=== PATIENT | male | born 1965 ===

== ENCOUNTER 2018-06-26 20:29 | Observation (INO) | payer BC, MEDICARE ==
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
[2018-06-26] MEDS ORDERED: NS 0.9% 1000 ML** 2,000 ML IV ONE (21:03)
[2018-06-26 21:38] LABS: ABS Basophils 0.1 10^3/ul (0-0.2); ABS Eosinophils 0.2 10^3/ul (0-0.6); ABS Lymphocytes 2.6 10^3/ul (1.0-4.8); ABS Neutrophils 4.9 10^3/ul (1.5-7.7); Eosinophil % 2.5 %; Hematocrit 43 % (42-52); Hemoglobin 14.1 g/dL (14.0-18.0); Lymphocyte % 29.6 %; Mean Corpuscular HGB Conc 33 g/dL (31-36); Mean Corpuscular Hemoglobin 29 pg (27-31); Mean Corpuscular Volume 88 fL (80-94); Mean Platelet Volume 7.9 fL (7.4-10.4); Platelet Count 290 10^3/uL (150-450); Red Blood Count 4.86 10^6 /uL (4.18-5.48); Red Cell Distribution Width 14 % (10.5-15); White Blood Count 8.8 10^3/uL (3.5-10.8)
[2018-06-26 21:50] LABS: Albumin 4.6 g/dL (3.2-5.2); Albumin/Globulin Ratio 1.9 (1-3); BUN/Creatinine Ratio 17.1 (8-20); Calcium 9.7 mg/dL (8.6-10.3); EGFR African American 78.6 (>60); Globulin 2.4 g/dL (2-4); Magnesium 2.3 mg/dL (1.9-2.7); Potassium 3.6 mmol/L (3.5-5.0); Total Bilirubin 0.7 mg/dL (0.2-1.0)
[2018-06-26] MEDS ORDERED: Albuterol HFA INHALER* 8 gm MDI INH PRN (22:27)
[2018-06-26 22:38] LABS: TSH (Thyroid Stimulating Horm) 3.13 mcIU/mL (0.34-5.60)
[2018-06-26] MEDS ORDERED: Atorvastatin* 40 MG TAB PO SCH (23:00)
[2018-06-26] MEDS ORDERED: FLUoxetine CAP* 20 MG PO SCH (23:00)
[2018-06-26] MEDS ORDERED: Acetaminophen TAB* 325 MG PO PRN (23:04)
[2018-06-26] MEDS ORDERED: NS 0.9% 1000 ML** 1,000 ML IV SCH (23:15)
[2018-06-26] MEDS ORDERED: Gabapentin CAP(*) 300 MG PO SCH (23:45)
[2018-06-27] MEDS ORDERED: Iodixanol* (CONTRAST) 320 MG/ML 100 ML SDV IV ONE (00:49)
--- NOTE | 2018-06-27 02:21 | HP ---
HISTORY AND PHYSICAL: DATE OF ADMISSION: 06/26/18 PROVIDER: Ricardo Aguiar NP. PRIMARY CARE PROVIDERS: Dr. Vera and Dr. Mckeon. ATTENDING PHYSICIAN WHILE IN THE HOSPITAL: Dr. Ricky Vieira * (dictated by Ricardo Aguiar NP). CHIEF COMPLAINT: Low blood sugar, low blood pressure. HISTORY OF PRESENT ILLNESS: Mr. Diaz is a 53-year-old male with a past medical history significant for hypertension, type 2 diabetes, hyperlipidemia, and GERD who presented to the emergency room with complaints of low blood sugar and hypotension. The patient reports that he was in his normal state of health today, feeling fine. He reports that this afternoon he had 4 to 5 beers. This evening he was feeling weak and started seeing black dots. He reports that he took his blood pressure; it was 57/40 at home and when he checked his blood sugar, it was 65 after he had eaten a large salad and had beer to drink. The patient reports that he rechecked his blood sugar and it remained at 65. He reports that he was feeling weak and shaky, so he presented to the emergency room for further evaluation. The patient reports that when he got out of the car to come into the emergency room, he felt weak with standing and a palpation sensation in his neck and upper chest that resolved approximately after 30 minutes with rest. He denies any fever, chills, or unintended weight loss. He denies any edema, cough, hemoptysis, or shortness of breath. No nausea, vomiting, diarrhea, or abdominal pain, hematuria, or dysuria. Denies any focal weakness. He did report seeing black dots. Denies any dysphagia, arthralgias, myalgias, rashes, lesions, or open sores. Denies any psychosis or anxiety. The patient also reports that he has had a 74-pound weight loss that has been intentional. The patient has been trying to lose weight. His typical daily diet consists of 2 protein shakes and a large salad in the evening with a source of meat protein. The patient reports that he is supposed to follow with his primary care doctor next week to see if he would need medication adjustments for his diabetes and hypertension. Due to his hypoglycemia and hypotension, we were asked to see and evaluate him for admission. PAST MEDICAL HISTORY: 1. Hypertension. 2. Type 2 diabetes. 3. Hyperlipidemia. 4. Acid reflux. 5. Chronic pain. 6. Depression. 7. Ascending aortic aneurysm. PAST SURGICAL HISTORY: 1. History of spinal surgery x5. 2. Hernia repair in 2013. 3. Tonsillectomy. 4. Hemangioma removed from his head. MEDICATIONS: Home medications include: 1. Aspirin 81 mg p.o. daily. 2. ReQuip 8 mg p.o. at bedtime. 3. Metformin 1000 mg p.o. b.i.d. 4. Ranitidine 150 mg p.o. b.i.d. 5. ProAir HFA 1 puff b.i.d. p.r.n. 6. Actos 30 mg p.o. daily. 7. Pantoprazole 40 mg p.o. daily. 8. Pamelor 50 mg at bedtime. 9. Metoprolol 100 mg b.i.d. 10. Xyzal 10 mg p.o. daily p.r.n. 11. Irbesartan/hydrochlorothiazide 150/12.5 one tablet p.o. daily. 12. Gabapentin 900 mg p.o. b.i.d. 13. Breo Ellipta 1 inhale daily. 14. Fluoxetine 80 mg at bedtime. 15. Trulicity 1.5 mg subcu weekly. 16. Colace 100 mg p.o. b.i.d. 17. Flexeril 10 mg p.o. t.i.d. p.r.n. He has not taken this medication in a long time. 18. Atorvastatin 40 mg at bedtime. 19. Alprazolam 0.5 mg p.o. at bedtime. ALLERGIES: He has an allergy to CARBIDOPA/LEVODOPA, PSEUDOEPHEDRINE, rice, and ACTIFED. FAMILY HISTORY: The patient was adopted, unknown. Biological mother at the age of 82. He does report his biological brother had prostate cancer and biological sister with breast cancer. SOCIAL HISTORY: The patient reports that he quit smoking approximately 10 years ago. Prior to that, he smoked 1-1/2 packs a day for 30 years. Does report occasional alcohol use. Denies any illicit drug use. He is disabled. He is . Surrogate decision maker in the event he is unable to make his own decision is his . He is a full code. REVIEW OF SYSTEMS: An 11-point review of systems was completed and all pertinent positives were mentioned in the HPI. PHYSICAL EXAMINATION GENERAL: At this time, Mr. Diaz is a 53-year-old male. He is resting comfortably on the stretcher in the emergency room. He is alert and oriented. He does not appear to be in any acute distress. VITAL SIGNS: Blood pressure 102/62, heart rate 82, respirations are 10, O2 saturation is 94% on room air, temperature was 97.8. HEENT: Head is atraumatic, normocephalic. Eyes: EOMs are intact. Sclerae anicteric and not pale. Oral mucosa appears to be moist. NECK: Supple. LUNGS: Clear to auscultation bilaterally. No wheezes, rales, or rhonchi. CARDIAC: S1, S2. Regular rate and rhythm. No murmurs, rubs, or gallops. ABDOMEN: Soft and nontender. Bowel sounds are present x4. EXTREMITIES: He is able to move all 4 extremities with 5/5 strength. Pedal pulses are +2 bilaterally. There is no clubbing or cyanosis. NEUROLOGIC: He is awake, alert, and oriented x3. Speech is clear. Thought process is intact. There are no gross focal deficits. SKIN: Intact. DIAGNOSTIC STUDIES/LAB DATA: WBCs are 8.8, RBCs 4.86, hemoglobin 14.1, hematocrit 43, platelet count was 290. D-dimer is less than 200. Sodium 134, potassium 3.6, chloride 101, carbon dioxide is 22, anion gap 11, BUN 20, creatinine 1.17, glucose 58; repeat Accu-Chek was 87. Lactic acid initially was 2.5; repeat is pending at 1:30. Calcium 9.7. ASTs were 17, ALTs were 20. Troponin was 0.00. TSH was 3.13. Alcohol level was 18. Urine is currently pending. EKG showed sinus rhythm at a rate of 87. No ST elevations. ASSESSMENT AND PLAN: Mr. Diaz is a 53-year-old male with past medical history significant for hypertension, type 2 diabetes, hyperlipidemia, gastroesophageal reflux disease, ascending aortic aneurysm who presented to the emergency room with complaints of hypotension and hypoglycemia. Due to these findings, we were asked to see and evaluate him for admission. He will be admitted under observation for: 1. Hypoglycemia. I will get fingersticks q.2 hours x4 and then q.4 hours. I will hold his Actos, metformin, and Trulicity. The patient reports that he has had a 75- pound weight loss and has not had any of his medications adjusted. I suspect that his hypoglycemia could be related to no adjustments of his medications after weight loss. We will monitor the patient overnight and make medication adjustments in the a.m. A hemoglobin A1c is currently pending. 2. Hypotension. Again, the patient has had a 70-pound weight loss with no medication adjustments. I will hold his blood pressure medications this evening and resume them when blood pressure is stable. I will give him one more liter of normal saline in the emergency room. He will likely need his medications adjusted. Again, the patient has a 75-pound weight loss with no medication adjustments. 3. Hyperlipidemia. Can continue on atorvastatin as previously prescribed. 4. Gastroesophageal reflux disease. He can continue on pantoprazole 40 mg p.o. daily. 5. Chronic pain. We will continue his gabapentin 900 mg p.o. b.i.d. 6. History of ascending aortic aneurysm. This has been monitored by PCP as an outpatient. The patient has no chest pain or symptomatology of dissection. If the patient does develop chest pain or symptomatology of dissection, we will get a CTA of his chest. 7. DVT prophylaxis. I will place him on SCDs. 8. Code status. He is a full code. 9. Diet. He can have consistent carb diet. TIME SPENT: Time spent on this admission was 60 minutes. Greater than half that time was spent at the bedside reviewing events leading thus far to this hospitalization, performing my physical exam, and reviewing my plan of care. I have discussed this with my attending, Dr. Ricky Vieira; he is in agreement with my plan. RICARDO AGUIAR, ECOMMERCE MANAGER [id number]/[facility] #: [id number] AWA
--- NOTE | 2018-06-27 08:32 | PN ---
Subjective Date of Service: 06/27/18 Interval History: A1c 5.3%. BPs at goal off meds. Pt feels well. Describes significant dietary and other lifestyle changes since attending [facility] (as prerequirement for possible bariatric surgery) that resulted in significant weight loss. Likely this is what brought his glucose and pressures down. Objective Active Medications: Acetaminophen (Tylenol Tab*) 650 mg PO Q4H PRN PRN Reason: FEVER/PAIN Albuterol (Ventolin Hfa Inhaler*) 1 puff INH BID PRN PRN Reason: SOB/WHEEZING Alprazolam (Xanax Tab*) 0.5 mg PO BEDTIME BRITTANEY Aspirin (Aspirin Ec Tab*) 81 mg PO DAILY BRITTANEY Atorvastatin Calcium (Lipitor*) 40 mg PO BEDTIME BRITTANEY Last Admin: 06/27/18 00:27 Dose: 40 mg Fluoxetine HCl (Prozac Cap*) 80 mg PO BEDTIME BRITTANEY Last Admin: 06/27/18 00:27 Dose: 80 mg Fluticasone/Vilanterol (Breo Ellipta Mdi 200/25(Nf)) 1 puff INH DAILY [facility] Last Admin: 06/27/18 07:48 Dose: Not Given Nortriptyline HCl (Pamelor Cap*) 50 mg PO BEDTIME BRITTANEY Pantoprazole Sodium (Protonix Tab*) 40 mg PO DAILY BRITTANEY Ropinirole HCl (Requip*) 8 mg PO BEDTIME [facility] Vital Signs - 8 hr 06/27/18 06/27/18 06/27/18 00:27 03:27 04:05 Temperature 97.1 F Pulse Rate 75 Respiratory 18 16 20 Rate Blood Pressure 128/68 (mmHg) Oxygen Devices in Use Now: None Appearance: well appearing, alert, interactive Ears/Nose/Mouth/Throat: Clear Oropharnyx, Mucous Membranes Moist Neck: NL Appearance and Movements; NL JVP Respiratory: Symmetrical Chest Expansion and Respiratory Effort, Clear to Auscultation Cardiovascular: RRR Abdominal: NL Sounds; No Tenderness; No Distention, No Hepatosplenomegaly Extremities: No Edema, No Clubbing, Cyanosis Skin: No Rash or Ulcers Neurological: Alert and Oriented x 3, NL Gait, NL Muscle Strength and Tone Result Diagrams: 06/26/18 21:25 06/26/18 21:25 Assess/Plan/Problems-Billing Assessment: 53M with DM2, HTN, obesity s/p significant weight loss, presenting with hypotension and hypoglycemia. - Patient Problems (1) Diabetes mellitus type 2 in obese Status: Chronic Priority: Medium Code(s): E11.9 - TYPE 2 DIABETES MELLITUS WITHOUT COMPLICATIONS; E66.9 - OBESITY, UNSPECIFIED SNOMED Code(s): 29511498 Comment: Will stop all DM2 agents. Repeat A1c in 3 months. Pt reports that he monitors fasting blood glucose at home. (2) Hypotension Status: Acute Comment: Iactrogenic. Will stop amlodipine and HCTZ. Continue ARB at low dose and metoprolol given h/o tachycardia.
[2018-06-27] MEDS ORDERED: Aspirin EC TAB* 81 MG TAB.EC PO SCH (09:00)
[2018-06-27] MEDS ORDERED: Pantoprazole TAB * 40 MG TAB PO SCH (09:00)
[2018-06-27] MEDS ORDERED: Fluticasone/Vilanterol MDI(NF) 200/25 MDI INH SCH (09:00)
[2018-06-27 12:45] VITALS: BP 144/82
[2018-06-27] MEDS ORDERED: ALPRAZolam TAB* 0.5 MG PO SCH (21:00)
[2018-06-27] MEDS ORDERED: Nortriptyline CAP* 25 MG PO SCH (21:00)
[2018-06-27] MEDS ORDERED: rOPINIRole TAB* 4 MG PO SCH (21:00)
--- NOTE | 2018-06-28 00:17 | DS ---
CC: Dr. Emir Vera * DISCHARGE SUMMARY: DATE OF ADMISSION: 06/26/18 DATE OF DISCHARGE: 06/27/18 PRIMARY CARE PHYSICIAN: Dr. Emir Vera. PRIMARY DIAGNOSIS: Iatrogenic hypoglycemia and hypotension. SECONDARY DIAGNOSES: 1. Diabetes type 2. 2. Hypertension. 3. Gastroesophageal reflux disease. 4. Chronic pain. 5. Ascending aortic aneurysm. 6. Depression. 7. Restless legs syndrome. DISCHARGE MEDICATIONS: 1. Irbesartan 150 mg nightly. 2. Metoprolol succinate 100 mg nightly. 3. Alprazolam 0.5 mg at bedtime. 4. Aspirin 81 mg daily. 5. Atorvastatin 40 mg at bedtime. 6. Cyclobenzaprine 10 mg 3 times a day as needed for muscle spasm. 7. Fluoxetine 80 mg at bedtime. 8. Gabapentin 900 mg twice a day. 9. Levocetirizine 10 mg daily. 10. Nortriptyline 50 mg at bedtime. 11. Pantoprazole 40 mg daily. 12. Breo Ellipta 1 inhalation daily. 13. Albuterol 2 puffs 3 to 4 hours as needed for shortness of breath. 14. Ranitidine 150 mg twice a day as needed for reflux. 15. Ropinirole 8 mg at bedtime. HISTORY OF PRESENT ILLNESS: A 53-year-old male with a history of diabetes, hypertension, GERD, obesity, who presented to the emergency room with complaints of low blood sugar and hypotension. The patient states that he was in his normal state of health today, which is generally good health. This afternoon of his presentation, he had 4 to 5 beers. Afterwards, he was feeling weak and started seeing black dots. He reports that when he checked his blood pressure at home, it was 67/40 and his blood sugar was in the 60s even after eating a large salad with multiple beers. He reports that he rechecked his sugar again. It was still in the 60s. Because he was feeling weak and shaky, he presented to the emergency room. He felt weak on standing with a palpitation sensation in his neck and upper chest that resolved after rest. He has had no fever or chills or unintended weight loss, but he has lost approximately 74 pounds in the last several months due to significant lifestyle changes. He has had no cough, hemoptysis, shortness of breath, nausea, vomiting, diarrhea, no weakness. He generally has 2 protein shakes a day with a large salad in the evening with meat for protein. He is supposed to follow up with his primary care next week to see if he needed medication adjustment for his diabetes and hypertension. However, given his presenting symptoms, he came to the emergency room. HOSPITAL COURSE: The patient was admitted to the medical floor and his metformin, Trulicity and Actos were held. All of his blood pressure medications were held as well. An A1c resulted 5.3%. He received 3 L of normal saline with complete resolution of his symptoms. By next morning, the patient reports he was feeling great and back to his baseline with stable blood sugar and normal blood pressures. He had extensive discussion with this senior grant writer regarding blood pressure and blood glucose management. He preferred to stop all blood glucose medication as he follows his blood glucose very closely at home and it was recommended that he repeat his A1c in 3 months after discontinuing medications in the hospital. If he has an A1c above 7% at that time, it was recommended that he go back on metformin. He also had extensive discussion about blood pressure management and the patient checks his blood pressure at home frequently and states that he is able to keep a log and see primary care immediately if he notices his blood pressures are too low or above his goal of less than 130/80. PERTINENT STUDIES AND LABS: Hemoglobin A1c 5.3%. Chest/thorax CTA without aortic dissection, aneurysm, or rupture. Moderate emphysema. DISCHARGE PLAN: The patient is to follow up closely with his primary care physician for further optimization of his blood pressure and blood glucose regimen. He will be due for a repeat of his hemoglobin A1c in 3 months, which is mid September. If his blood sugar is above goal, notably an A1c of 7% or above, he should be restarted on metformin given significant health benefits of this medication and also the patient preferring some tolerability. For his blood pressure, we will stop amlodipine and hydrochlorothiazide. He can be continued on metoprolol. However, instead of metoprolol tartrate twice a day, we will decrease to metoprolol succinate 100 once a day given history of tachycardia requiring beta-blockade. He will also be continued on low dose of irbesartan given cardiomyoprotection in the setting of history of diabetes and hypertension. The patient is to continue monitoring his blood glucose at home, fasted in the morning and will bring a log of that in addition to his blood pressures to his primary care physician for review. He is to continue healthy diet with activity as tolerated. DISPOSITION: To home. CONDITION: Good. TIME SPENT: Approximately 60 minutes spent on discharge of this patient, more than half of which was spent with care coordination at bedside for interview and exam. [id number]/[facility] #: [id number] MTDD
== END 2018-06-27 13:15 | disposition home or self-care (01) ==
LOC: ED 20:29 → MED 23:04
PROVIDERS: ADMIT Nurse Practitioner; ATTEND Internal Medicine
DX: E11.649 Type 2 diabetes mellitus with hypoglycemia without coma (principal); I95.9 Hypotension, unspecified; I10 Essential (primary) hypertension; K21.9 Gastro-esophageal reflux disease without esophagitis; G89.29 Other chronic pain; I71.2 Thoracic aortic aneurysm, without rupture; F32.9 Major depressive disorder, single episode, unspecified; G25.81 Restless legs syndrome; Z79.82 Long term (current) use of aspirin; E66.9 Obesity, unspecified; J43.9 Emphysema, unspecified
CPT/HCPCS: 36415; 71275; 80053; 80320; 83036; 83605; 83735; 84443; 84484; 85025; 85379; 93005; 94660; 96360; 99284; A9270-GY; G0378; G0480; Q9967

== ENCOUNTER 2018-10-14 17:55 | Inpatient (IN) | payer BC, MEDICARE ==
--- NOTE | 2018-10-14 18:03 | ED ---
Substance Abuse/Use - HPI Summary HPI Summary: This pt is a 53 y/o male presenting to [facility] via EMS for intentional overdose last night. reports that at about 2130 yesterday 10/13/18 pt ingested at least two different medications. states they were at a camp last night where the pt was drinking alcohol. Per the pt left the camp site to drive home and 's son told her he saw pt's truck at their home at around 2215. Pt took a max of 45 pills of Trazadone 50 mg and a max of 35 pills of Xanax 0.5 mg. At around 1200 today went to check on the pt and pt was still sleeping and was still "drunk" from last night. At around 1400 - 1500 noticed pt had slurred speech and couldn't push himself up anymore while in the bathroom. also found a "goodbye email" the patient had written to her that was concerning for suicide and this is when she called 911. Pt also cut his right wrist. Per EMS pt admitted he ingested the medications and cut his wrist in an attempt to harm himself. Pt denies any pain. He denies vomiting. EMS states pt has long standing history of mental health. Pt also has bottles of Flexeril, Lexapro, and metoprolol. Per , Lexapro has been discontinued. PMHx: HTN. - History Of Current Complaint Stated Complaint: OVERDOSE PER EMS Time Seen by Provider: 10/14/18 17:56 Hx Obtained From: Patient, Family/Brake Rider - Onset/Duration of Drug/ETOH Abuse: Hours Ingestion History: Type/Name Of Drug - Trazadone 50 mg, Xanax 0.5 mg, Amount Ingested - max of 45 pills of Trazadone and max 35 pills of Xanax, Approximate Time Of Ingestion - approx 21:30 on 10/13/18. Overdose Characteristics: Oral Timing Of Abuse: Binge Use Severity Currently: Moderate Character: Depressed, Lethargic Aggravating Factor(s): Nothing Alleviating Factor(s): Nothing Associated Signs And Symptoms: Altered Mental Status, Intentional Ingestion Related Hx: Suicidal, Possible Multi Drug Ingestion, Suicidal: Thoughts, Suicidal: Plan - Allergies/Home Medications Allergies/Adverse Reactions: Allergies Allergy/AdvReac Type Severity Reaction Status Date / Time carbidopa [From Sinemet] Allergy Hives Verified 10/14/18 18:15 levodopa [From Sinemet] Allergy Hives Verified 10/14/18 18:15 pseudoephedrine Allergy Rash Verified 10/14/18 18:15 [From Actifed] rice Allergy See Comment Verified 10/14/18 18:15 triprolidine [From Actifed] Allergy Rash Verified 10/14/18 18:15 Home Medications: Home Medications Escitalopram * [Lexapro *] 20 mg PO DAILY 10/14/18 [History Confirmed 10/14/18] Irbesartan 300 mg PO BEDTIME 10/14/18 [History Confirmed 10/14/18] Spironolactone TAB* [Aldactone TAB*] 25 mg PO DAILY 10/14/18 [History Confirmed 10/14/18] traZODone TAB* [Desyrel TAB*] 150 mg PO BEDTIME 10/14/18 [History Confirmed 04/02] PMH/Surg Hx/FS Hx/Imm Hx Endocrine/Hematology History: Reports: Hx Diabetes - TYPE 2 Denies: Hx Sickle Cell Disease, Hx Thyroid Disease Cardiovascular History: Reports: Hx Angina - PALPITATIONS, TACHYCARDIA, Hx Hypercholesterolemia, Hx Hypertension Denies: Hx Congestive Heart Failure, Hx Pacemaker/ICD, Other Cardiovascular Problems/Disorders Respiratory History: Reports: Hx Chronic Obstructive Pulmonary Disease (COPD) - emphysema, Hx Sleep Apnea, Other Respiratory Problems/Disorders - CPAP at home; does not use Denies: Hx Asthma GI History: Reports: Hx Gastroesophageal Reflux Disease Denies: Hx Ulcer History: Denies: Hx Renal Disease Musculoskeletal History: Reports: Hx Arthritis - HANDS AND MOST JOINTS, Hx Back Problems, Other Musculoskeletal History - DEGEN DISC; Neck Pain Denies: Hx Gout, Hx Scoliosis Sensory History: Reports: Hx Contacts or Glasses Denies: Hx Hearing Aid, Hx Hearing Problem Opthamlomology History: Reports: Hx Contacts or Glasses Neurological History: Reports: Hx Headaches, Hx Migraine, Other Neuro Impairments/Disorders - degen. disc disease Psychiatric History: Reports: Hx Anxiety, Hx Depression, Hx Panic Disorder Comment Only: Other Psychiatric Issues/Disorders - claustofobic - Surgical History Surgical History: Yes Surgery Procedure, Year, and Place: TONSILS 1970, [facility]. 1972, HEMANGIOMA FROM SIDE OF HEAD, [facility] [place]. hernia operation in apr 2012. cardiac cath - 11/2013 stress test. neck and lumbar fusions Hx Anesthesia Reactions: No Infectious Disease History: Denies: Hx Clostridium Difficile, Hx Hepatitis, Hx Human Immunodeficiency Virus (HIV), Hx of Known/Suspected MRSA, Hx Shingles, Hx Tuberculosis, Hx Known/ Suspected VRE - Family History Known Family History: Negative: Blood Disorder - Social History Alcohol Use: Weekly Alcohol Amount: 2 drinks per week Substance Use Type: Reports: None Hx Tobacco Use: Yes - 30 YEARS Smoking Status (MU): Former Smoker Type: Cigarettes Amount Used/How Often: 1ppd Have You Smoked in the Last Year: No Review of Systems Negative: Fever, Chills Negative: Abdominal Pain, Vomiting, Nausea Skin: Other - POSITIVE: laceration on right wrist Psychological: Other - POSITIVE: SI attempt Positive: Depressed All Other Systems Reviewed And Are Negative: Yes Physical Exam - Summary Physical Exam Summary: Constitutional: NAD, somnolent Skin: Warm, Dry. 5 cm superficial laceration to the right wrist. HENT: Normocephalic; Atraumatic. Dry mucous membranes. Eyes: Conjunctiva normal Neck: Musculoskeletal ROM normal neck. (-) JVD, (-) Stridor Cardio: Rhythm regular, tachycardic, Heart sounds normal; Intact distal pulses; Radial pulses are 2+ and symmetric. (-) Murmur Pulmonary/Chest wall: Effort normal. (-) Respiratory distress, (-) Wheezes, (-) Rales Abd: Soft, (-) tenderness, (-) Distension, (-) Guarding, (-) Rebound Musculoskeletal: (-) Edema Lymph: (-) Cervical adenopathy Neuro: Somnolent but arousable with verbal stimuli. Oriented x3. No clonus. Psych: +SI Triage Information Reviewed: Yes Vital Signs Reviewed: Yes - [place] Coma Scale Best Eye Response: 3 - To Speech Best Motor Response: 6 - Obeys Commands Best Verbal Response: 5 - Oriented Coma Scale Total: 14 Diagnostics - Laboratory Result Diagrams: 10/14/18 18:16 10/14/18 18:16 Lab Statement: Any lab studies that have been ordered have been reviewed, and results considered in the medical decision making process. - CT Brain CT CT Interpretation Completed By: Radiologist Summary of CT Findings: IMPRESSION: No acute intracranial abnormality. Dr. Chopra has reviewed this report. - EKG 18:55 Cardiac Rate: Tachycardia - at 99 bpm EKG Rhythm: Sinus Tachycardia Summary of EKG Findings: QTc is 468. Re-Evaluation - Re-Evaluation First Eval Comment: Patient still somnolent, will admit to medicine for sobriety and then pysch evaluation Course/Dx - Course Course Of Treatment: 53-year-old male with history of depression presents with suicidal attempt with ingestion. Physical exam a somnolent male, protecting airway. Possible ingestion of up to 50 0.5 mg lorazepam tablets as well as 35 trazodone tablets. Given patient's continued somnolence, we'll check labs, head CT, EKG. Discussed with poison control. Likely to be admitted to hospitalist service pending sobriety for reevaluation of suicidal ideation - Diagnoses Provider Diagnoses: Altered mental status, Overdose - Physician Notifications Discussed Care Of Patient With: Dr. Moran - hospitalist Time Discussed With Above Provider: 19:54 Instructed by Provider To: Admit As Inpatient Discharge ED - Sign-Out/Discharge Documenting (check all that apply): Patient Departure - Admit to [facility] Patient Received Moderate/Deep Sedation with Procedure: No - Discharge Plan Condition: Stable Disposition: ADMITTED TO [facility] - Billing Disposition and Condition Condition: STABLE Disposition: Admitted to [facility] - Attestation Statements Document Initiated by Torin: Yes Documenting Scribe: Irina Young Provider For Whom Torin is Documenting (Include Credential): Adelaida Chopra MD Scribe Attestation: Irina Ramirez, scribed for Adelaida Chopra MD on 10/14/18 at 2323. Scribe Documentation Reviewed: Yes Provider Attestation: The documentation as recorded by the Irina osman accurately reflects the service I personally performed and the decisions made by me, Adelaida Chopra MD Status of Scribe Document: Viewed
--- OUTSIDE RECORDS SUMMARY | 2018-10-14 18:07 | XMS REPORT | Summary of Care ---
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 Last A1C was 6.0 on 09/27/2018. Encounter Details Date Type Department Care Team Description 10/01/2018 Office Visit [place] Emir Mckay BMI 32.0-32.9, adult (Primary Dx); Zev Lua MD Routine general medical examination at a health care facility; [address] [facility] Essential hypertension, benign; [place] [address] [place] [address] ASHD (arteriosclerotic heart disease); [phone] Gastroesophageal reflux disease without esophagitis; [phone] Chronic bilateral low back pain with sciatica, sciatica laterality unspecified (Fax) Allergies Active Allergy Reactions Severity Noted Date Comments Carbidopa W/Levodopa Rash 10/18/2012 Rice GI Reaction 10/29/2012 Sudafed Cold-Cough Dermatologic Reaction 10/18/2012 Zinc Other 08/23/2017 States his ribs itch on the inside documented as of this encounter (statuses as of 10/01/2018) Medications Medication Sig Dispensed Refills Start Date End Date Status Blood Glucose Brand: InvestGlass IQ 100 Strip 5 12/26/2012 Active Monitoring Suppl (BLOOD Dx: 250.00 GLUCOSE TEST STRIPS NON-INSULIN STRP) DEPENDENT Test Blood Glucose 1 time(s) A DAY docusate sodium Take 1 Cap by 60 Cap 0 01/29/2015 Active (COLACE) 100 MG Oral mouth TWICE Cap DAILY. Levocetirizine Take 5 mg by 0 Active Dihydrochloride 5 MG mouth DAILY Oral Tab NEEDED. Fluticasone Take 1 Puff by 0 Active Furoate-Vilanterol inhalation DAILY. (BREO ELLIPTA) 200-25 MCG/INH Inhalation AEROSOL POWDER, BREATH ACTIVATED Albuterol Sulfate Take 2 Puffs by 0 Active (PROAIR HFA IN) inhalation EVERY FOUR HOURS NEEDED. Irbesartan 300 MG Oral Take 1 Tab by 90 Tab 11 08/30/2017 Active Tab mouth DAILY. Additional information Patient taking differently: 0.5 Tab Oral DAILY, Reported on 07/02/2018 1:56 PM Glucose Blood In Vitro 1 Strip by In 100 Each 5 10/02/2017 Active Strip Vitro route DAILY. E11.9, no insulin Aspirin 81 MG Oral Tab Take by mouth. 0 Active EC atorvastatin (LIPITOR) Take 1 Tab by 90 Tab 3 04/10/2018 Active 80 MG Oral mouth DAILY. TabIndications: Mixed hyperlipidemia ALPRAZolam (XANAX) 0.5 TAKE 1 TAB BY 90 Tab 0 05/06/2018 Active MG Oral MOUTH THREE TabIndications: TIMES DAILY Depression with NEEDED FOR anxiety ANXIETY nortriptyline Take 50 mg by 0 Active (PAMELOR) 50 MG Oral mouth EVERY Cap BEDTIME. spironolactone Take 1 Tab by 30 Tab 5 09/19/2018 Active (ALDACTONE) 25 MG Oral mouth DAILY. TabIndications: Essential hypertension, benign metoprolol succinate Take 1 Tab by 90 Tab 3 09/23/2018 Active (TOPROL XL) 50 MG Oral mouth DAILY. TABLET SR 24 HRIndications: ASHD (arteriosclerotic heart disease) pantoprazole TAKE 1 TABLET 90 Tab 3 09/25/2018 Active (PROTONIX) 40 MG Oral BY MOUTH EVERY Tab EC DAY ROPINIROLE TAKE 2 TABLETS 180 Tab 4 09/25/2018 Active HYDROCHLORIDE 4 MG BY MOUTH AT Oral TabIndications: BEDTIME Restless leg syndrome trazodone (DESYREL) 50 Take 1-3 Tabs 90 Tab 3 10/01/2018 Active MG Oral Tab by mouth EVERY BEDTIME NEEDED (sleep). gabapentin (NEURONTIN) Take 1-2 Caps 540 Cap 3 10/01/2018 Active 300 MG Oral Cap by mouth TWICE DAILY. Glucose Blood In Vitro 1 Each by In 100 Each 5 07/13/2017 Discontinued Strip Vitro route 019 (Duplicate Order) DAILY. Verio IQ, dx 250.00, non insulin gabapentin (NEURONTIN) TAKE 3 CAPS BY 540 Cap 3 09/03/2018 Discontinued (Dose 300 MG Oral Cap MOUTH TWICE 019 Adjustment) DAILY. trazodone (DESYREL) 50 Take 1-3 Tabs 90 Tab 0 09/10/2018 Discontinued MG Oral Tab by mouth EVERY 019 (Reorder) BEDTIME NEEDED (sleep). documented as of this encounter (statuses as of 10/01/2018) Active Problems Problem Noted Date Family history of colon cancer 06/13/2017 Overview: Brother age 60 Tubular adenoma 06/13/2017 Overview: Colonoscopy Dr Shelton 2014 Chronic bilateral low back pain with sciatica 10/19/2016 History of tobacco use 07/27/2016 Overview: Quit 2007 30-40 pack per day years Herniated nucleus pulposus, L4-5 right 01/25/2015 Restless leg syndrome 03/09/2014 Herniated nucleus pulposus, L4-5 left 01/19/2014 White coat hypertension 12/19/2013 Overview: Home blood pressure 130s/80s Non-cardiac chest pain 11/25/2013 Overview: [facility] admission rule out myocardial infarction November [address] Deng negative Non-allergic rhinitis 12/31/2012 Overview: Allergy testing normal Mixed hyperlipidemia 10/18/2012 Cervical spinal stenosis 10/18/2012 Overview: Cervical mri severe C5-6 and C6-7 mri [facility] Oct 2015 Thoracic disc disease 10/18/2012 Overview: Mri thoracic spine [facility] October 2015 Lumbar spinal stenosis 10/18/2012 Overview: Mri 2007 no surgery Essential hypertension, benign 10/18/2012 Pulmonary emphysema 10/18/2012 Overview: 30-40 pack per day years quit 2007 GERD (gastroesophageal reflux disease) 10/18/2012 Obstructive sleep apnea 10/18/2012 documented as of this encounter (statuses as of 10/01/2018) Resolved Problems Problem Noted Date Resolved Date Pre-diabetes 08/29/2018 10/01/2018 Extreme obesity 06/13/2017 08/09/2018 Controlled type 2 diabetes mellitus without complication, 10/19/20162018 without long-term current use of insulin Numbness in feet 04/05/2015 10/01/2018 Back pain, lumbosacral 01/05/2014 10/29/2015 Displacement of lumbar intervertebral disc without 01/05/2014 10/01/2018 myelopathy Sprain of lumbar region 11/22/2012 12/31/2012 BMI 34.0-34.9,adult 10/18/2012 10/01/2018 Overview: BMI 36 10/25 Migraine headache 10/18/2012 10/01/2018 Overview: Neurologist Dr Pace [facility] Type II diabetes mellitus, uncontrolled 10/18/2012 10/19/2016 Overview: Hemoglobin A1C 6.1% spring 2012 Depression with anxiety 10/18/2012 10/01/2018 Overview: In remission fluoxitene since 2010 Chronic rhinitis 10/18/2012 12/31/2012 documented as of this encounter (statuses as of 10/01/2018) Immunizations Name Administration Dates Next Due DTAP Vaccine 11/04/2007 Hepatitis B Vaccine 05/10/2010, 11/24/2009, 10/20/2009 Influenza (IM) Preservative Free 10/25/2016 Influenza (IM) W/Pres 10/29/2015 PNEUMOCOCCAL POLYSACCHARIDE VACCINE 10/29/2015 Pneumococcal Conjugate Vaccine 11/02/2015, 05/10/2010 documented as of this encounter Social History Tobacco Use Types Packs/Day Years Used Date Former Smoker Smokeless Tobacco: Never Used Alcohol Use Drinks/Week oz/Week Comments Yes 1 Standard drinks or equivalent 0.8 OCC Sex Assigned at Date Recorded Not on file Job Start Date Occupation Industry Not on file Not on file Not on file Travel History Travel Start Travel End No recent travel history available. documented as of this encounter Last Filed Vital Signs Vital Sign Reading Time Taken Comments Blood Pressure 128/80 10/01/2018 9:07 AM EDT Pulse 70 10/01/2018 9:07 AM EDT Temperature - - Respiratory Rate - - Oxygen Saturation - - Inhaled Oxygen Concentration - - Weight 98.4 kg (217 lb) 10/01/2018 9:07 AM EDT Height 174 cm (5' 8.5") 10/01/2018 9:07 AM EDT Body Mass Index 32.51 10/01/2018 9:07 AM EDT documented in this encounter Patient Instructions Patient InstructionsEmir Vera MD - 10/01/2018 9:20 AM EDTWean off gabapentin over next month Trial of pantoprazole every other day then stop this nursing home goal weight is <200 pounds Diabetes mellitus is now gone Blood pressure is fine You are doing great Blood work today 9: 30 AM EDT documented in this encounter Progress Notes Emir Vera MD - 10/01/2018 9:20 AM EDT PATIENT: Van Diaz : 1965 DATE OF SERVICE: 10/01/2018 CHIEF COMPLAINT: Chief Complaint Patient presents with Diabetes Follow up. Last A1C was 6.0 on 09/27/2018. Subjective HISTORY OF PRESENT ILLNESS: Van Diaz is a 53-y.o. male. HPI Patient continues to adhere to low calorie and low carbohydrate diet and continue to do self weight at least three times weekly he continues to lose weight Wt Readings from Last 3 Encounters: 10/01/18 217 lb (98.4 kg) 09/19/18 220 lb (99.8 kg) 08/29/18 224 lb (101.6 kg) he began at 296 pounds and so has lost 80-90 lb in the past year He denies diabetes mellitus related symptoms Lab Results Component Value Date GLYCO 6.0 (H) 09/27/2018 he denies gastro-intestinal symptoms now off ranitidine and using only proton pump inhibitor once daily he denies spinal symptoms no radicular symptoms he asks about weaning off gabapentin Patient Active Problem List Diagnosis Mixed hyperlipidemia Cervical spinal stenosis Thoracic disc disease Lumbar spinal stenosis Essential hypertension, benign Pulmonary emphysema (HCC) GERD (gastroesophageal reflux disease) Obstructive sleep apnea Non-allergic rhinitis Non-cardiac chest pain White coat hypertension Herniated nucleus pulposus, L4-5 left Restless leg syndrome Herniated nucleus pulposus, L4-5 right History of tobacco use Chronic bilateral low back pain with sciatica Family history of colon cancer Tubular adenoma Family History Adopted: Yes Problem Relation Age of Onset Cancer Mother Diabetes Mother Obesity Mother Cancer Sister breast Cancer Brother colon ca Cancer Sister breast Cancer Sister breast Alcohol/Drug Brother Depression/Depressed Brother Current Outpatient Medications Medication Sig Albuterol Sulfate (PROAIR HFA IN) Take 2 Puffs by inhalation EVERY FOUR HOURS NEEDED. ALPRAZolam (XANAX) 0.5 MG Oral Tab TAKE 1 TAB BY MOUTH THREE TIMES DAILY NEEDED FOR ANXIETY Aspirin 81 MG Oral Tab EC Take by mouth. atorvastatin (LIPITOR) 80 MG Oral Tab Take 1 Tab by mouth DAILY. Blood Glucose Monitoring Suppl (BLOOD GLUCOSE TEST STRIPS STRP) Brand: Zuki Dx: 250.00 NON-INSULIN DEPENDENT Test Blood Glucose 1 time(s) A DAY docusate sodium (COLACE) 100 MG Oral Cap Take 1 Cap by mouth TWICE DAILY. Fluticasone Furoate-Vilanterol (BREO ELLIPTA) 200-25 MCG/INH Inhalation AEROSOL POWDER, BREATH ACTIVATED Take 1 Puff by inhalation DAILY. gabapentin (NEURONTIN) 300 MG Oral Cap Take 1-2 Caps by mouth TWICE DAILY. Glucose Blood In Vitro Strip 1 Strip by In Vitro route DAILY. E11.9, no insulin Irbesartan 300 MG Oral Tab Take 1 Tab by mouth DAILY. (Patient taking differently: Take 0.5 Tabs by mouth DAILY.) Levocetirizine Dihydrochloride 5 MG Oral Tab Take 5 mg by mouth DAILY NEEDED. metoprolol succinate (TOPROL XL) 50 MG Oral TABLET SR 24 HR Take 1 Tab by mouth DAILY. nortriptyline (PAMELOR) 50 MG Oral Cap Take 50 mg by mouth EVERY BEDTIME. pantoprazole (PROTONIX) 40 MG Oral Tab EC TAKE 1 TABLET BY MOUTH EVERY DAY ROPINIROLE HYDROCHLORIDE 4 MG Oral Tab TAKE 2 TABLETS BY MOUTH AT BEDTIME spironolactone (ALDACTONE) 25 MG Oral Tab Take 1 Tab by mouth DAILY. trazodone (DESYREL) 50 MG Oral Tab Take 1-3 Tabs by mouth EVERY BEDTIME NEEDED (sleep). No current facility-administered medications for this visit. Allergies Allergen Reactions Levodopa W-Carbidopa [Carbidopa W/Levodopa] Rash Rice GI Reaction Sudafed Cold-Cough Dermatologic Reaction Zinc Other States his ribs itch on the inside Social History Socioeconomic History Marital status: Spouse name: Not on file Number of children: Not on file Years of education: Not on file Highest education level: Not on file Occupational History Not on file Social Needs Financial resource strain: Not on file Food insecurity: Worry: Not on file Inability: Not on file Transportation needs: Medical: Not on file Non-medical: Not on file Tobacco Use Smoking status: Former Smoker Smokeless tobacco: Never Used Substance and Sexual Activity Alcohol use: Yes Alcohol/week: 0.8 standard drinks Types: 1 Standard drinks or equivalent per week Comment: OCC Drug use: No Sexual activity: Not on file Lifestyle Physical activity: Days per week: Not on file Minutes per session: Not on file Stress: Not on file Relationships Social connections: Talks on phone: Not on file Gets together: Not on file Attends latter-day service: Not on file Active member of club or organization: Not on file Attends meetings of clubs or organizations: Not on file Relationship status: Not on file Intimate partner violence: Fear of current or ex partner: Not on file Emotionally abused: Not on file Physically abused: Not on file Forced sexual activity: Not on file Other Topics Concern Back Care Not Asked Bike Helmet Not Asked Blood Transfusions Not Asked Caffeine Concern No Exercise No Hobby Hazards Not Asked International Travel Not Asked Service Yes Comment: [facility] Occupational Exposure Not Asked Seat Belt Not Asked Self-Exams Not Asked Sleep Concern Yes Comment: sleep apnea Special Diet Yes Comment: low fat low carbo diet for diabetes Stress Concern Not Asked Weight Concern Yes Comment: had lost wt from 276 lbs to 240 lbs 2011 Social History Narrative Lives in [place] area Step daughter Not currently working Grew up in [place] [facility] ROS continued insomnia and needs trazodone refill denies anxiety or depression and is off selective serotonin receptor inhibitor No cardiovascular symptoms Objective PHYSICAL EXAM: VITALS: BP 128/80 | Pulse 70 | Ht 5' 8.5" (1.74 m) | Wt 217 lb (98.4 kg) | BMI 32.51 kg/m Body mass index is 32.51 kg/m. Physical Exam S1 and S2 normal, no murmurs, clicks, gallops or rubs. Regular rate and rhythm. Chest is clear; nowheezes or rales. No edema or JVD. I spent 25 minutes with the patient, greater than half of this indirect face to face counseling addressing the current condition and the plan of care. ASSESSMENT / IMPRESSION: ICD-9-CM ICD-10-CM 1. BMI 32.0-32.9,adult V85.32 Z68.32 2. Routine general medical examination at a health care facility V70.0 Z00.00 PSA, TOTAL (FOLLOW-UP DIAGNOSTIC) 3. Essential hypertension, benign at goal continue current medications 401.1 I10 BASIC METABOLIC PANEL 4. ASHD (arteriosclerotic heart disease) continue current medications follow up cardiology 414.00 I25.10 LIPID PROFILE 5. Gastroesophageal reflux disease without esophagitis wean off proton pump inhibitor 530.81 K21.9 6. Chronic bilateral low back pain with sciatica, sciatica laterality unspecified wean off gabapentin 724.2 M54.40 724.3 G89.29 338.29 Patient Instructions Wean off gabapentin over next month Trial of pantoprazole every other day then stop this middle or [employer] principal goal weight is <200 pounds Diabetes mellitus is now gone Blood pressure is fine You are doing great Blood work today . Emir Vera MD 10/01/2018 10:07 documented in this encounter Plan of Treatment Date Type Specialty Care Team Description 10/01/2018 Lab Internal Medicine Arrived 03/26/2019 Office Visit Cardiology Carter Ball MD [address] [place] [address] [phone] Name Type Priority Associated Diagnoses Date/Time PSA, TOTAL (FOLLOW-UP Lab Routine Routine general medical 10/01/2018 9:39 AM EDT DIAGNOSTIC) examination at a health care facility BASIC METABOLIC PANEL Lab Routine Essential hypertension, 10/01/2018 9:39 AM EDT benign LIPID PROFILE Lab Routine ASHD (arteriosclerotic 10/01/2018 9:39 AM EDT heart disease) Health Maintenance Due Date Last Done Comments ZOSTER IMMUNIZATION SERIES 2014 (1 of 2) MEDICARE ANNUAL WELLNESS 08/23/2018 08/23/2017 VISIT FOOT EXAM 10/08/2018 10/08/2017, 10/08/2017, 09/25/2016, Additional history exists HEMOGLOBIN A1C 03/30/2019 09/27/2018, 06/26/2018, 02/08/2018, Additional history exists LIPID DISORDER SCREENING 04/10/2019 04/10/2018, 02/08/2018, 01/23/2018, Additional history exists DEPRESSION SCREENING 08/30/2019 08/29/2018, 08/23/2017 Diabetic Eye Exam 09/15/2019 09/14/2017, 05/02/2014 (Previously completed), 08/27/2013 (Previously completed) COLONOSCOPY SCREENING 08/30/2020 08/30/2017, 06/10/2014 PNEUMOCOCCAL 0-64 YRS Completed 11/02/2015, 10/29/2015, 05/10/2010 HPV IMMUNIZATION SERIES Aged Out No longer eligible based on patient's age to complete this topic MENINGOCOCCAL VACCINE IMM Aged Out No longer eligible based on patient's age to complete this topic documented as of this encounter Goals Goal Patient Goal Associated Recent Patient-Stated? Author Type Problems Progress Blood Pressure Blood Pressure 128/80 Miri Vera, < 140/90 (10/01/2018 Emir Lua, 9:07 AM EDT) Note: This is an individualized treatment (blood pressure) goal for Van Diaz: Displayed above (on the left) is your goal for blood pressure control. Your most recent blood pressure is also shown above, on the right. You should try to achieve blood pressures that are lower than your goal listed above (on the left). Depression screen Depression 6 (08/23/2017 10:21 AM No Rosa Burger RN (PHQ-9) total score < 5 EDT) Note: This is an individualized treatment (depression) goal for Van Diaz: Displayed above is your goal for a depression screening (PHQ-9) score that would indicate good control of your depression. Diabetes < 7.0 Diabetes 6.0 (09/27/2018 7:57 AM EDT) Emir Morgan MD Note: Diabetes Care Plan According to current 2014 ADA guidelines the patient A1C goal is less than 7. The patient's last A1C was Lab Results Lab Results Value Date/Time GLYCO 6.6 12/04/2013 0710 GLYCO 6.7 10/21/2012 1014 The patient is:at goal . As your provider, it is important that I advise you regarding: your current medications and help you with any challenges you may face taking your medications as directed (ex. instructions, cost, side effects, and interactions). lifestyle changes:exercise and diet your clinical goals and how you can achieve success:weight reduction, exercise plan and diet management medication management: N/A diet only patient education/self-management tools provided: Yes To successfully manage my Diabetes I will: have lab work every six months if my previous A1c was 7 or less. If my results were greater than 7, I will have lab work every three months. My goal is to control my diabetes by keeping A1c below 7.0 take medications every day as prescribed by my healthcare provider and if unable to take them I will discuss with my provider. exercise/walk 30 minutes 6 day(s) per week. If I experience chest pain, chest tightness, or shortness of breath, I will seek medical attention immediately. check feet daily. If sores or irritation are noticed, will seek medical attention. follow a low carbohydrate and low fat diet. My goal is an LDL (bad cholesterol) number less than 100 when I have my routine lab work. check blood sugar as instructed and will call my healthcare provider if the results are consistently below 70 or above 300. I will monitor for symptoms of low blood sugar (feeling faint, dizzy, lig htheaded, jittery, sweaty, or hungry), if symptoms are noticed, I will eat or drink something (glucose tabs, orange juice, candy) to help raise sugar. record my blood sugar results. [employer] is safe and secure way for you to do this in your medical record online. try to obtain an ideal body weight. My recent weight was Weight: 243 lb 12.8 oz (110.587 kg). My weight loss goal for my next office visit is 220 short term . to prevent kidney problems common to people with diabetes I will complete a yearly Microalbumin to check for protein in urine. I will talk with my healthcare provider about medications to prevent diabetic renal disease. to prevent diabetic retinopathy I will see an eye doctor yearly. A yearly dilated eye exam helps prevent blindness. if currently smoking, will discuss how to quit smoking with my healthcare provider and work towards quitting. Education Resources: [place] Diabetic Association Site http://diabetes.org Academy of Nutrition & Dietetics Site http://eatright.org National Smoking Cessation Site http://smokefree.gov Glycohemoglobin A1c < 7.0 Diabetes 6.0 (09/27/2018 7:57 AM Emir Morgan EDTBasilio RODRIGUEZ Note: This is an individualized treatment (diabetes control, HgbA1C) goal for Van Diaz: Displayed above is your progress towards your HgbA1C goal. Your goal is shown above (on the left); your most recent HgbA1C is shown on the right. Note that lower numbers are better. Weight loss vs. 18 mo Lifestyle 64 (10/01/2018 9:07 AM Emir Morgan MD max (lbs) >= 10 EDT) Note: This is an individualized lifestyle goal for Van Diaz: Your body mass index (BMI) is more than 30. You should lose weight. A reasonable starting goal is to lose 10 pounds. Displayed above is how many pounds you have lost thus far towards your 10 pound weight loss goal. Keep immunizations current Lifestyle Emir Morgan MD Note: This is an individualized lifestyle goal for Van Diaz: Please be sure to keep up-to-date on recommended immunizations. For example, this would include a yearly influenza vaccine. Immunization status can be seen by looking at the Health Maintenance sections of your [facility], Plan of Care, and any After Visit Summaries. Keep a regular sleep schedule Lifestyle No Rosa Burger RN Note: This is an individualized lifestyle goal for Van Diaz: Please maintain a regular sleep schedule. This may help with some symptoms of depression. Take all prescribed medications as Self-management Emir Morgan MD directed Note: This is an individualized self-management goal for Van Diaz: Please take all prescribed medications as directed. 1. Do not skip doses. If you cannot afford your medications, talk with your doctor. 2. Use a pill reminder system such as a pill box if needed. Your pharmacist can help you with this. 3. Contact your Pharmacy 5 days before your medication runs out. If you cannot take your medications for any reasons, talk with your doctor. 4. Please bring all of your medication bottles and inhalers (or a list of all your medications/inhalers) with you to every visit. Potential barriers to meeting all of your care plan goals will continue to be addressed on an ongoing basis. documented as of this encounter Results Not on filedocumented in this encounter Visit Diagnoses Diagnosis BMI 32.0-32.9,adult - Primary Body Mass Index 32.0-32.9, adult Routine general medical examination at a health care facility Essential hypertension, benign ASHD (arteriosclerotic heart disease) Coronary atherosclerosis of unspecified type of vessel, [place] or graft Gastroesophageal reflux disease without esophagitis Esophageal reflux Chronic bilateral low back pain with sciatica, sciatica laterality unspecified documented in this encounter (Home) [address] [phone] [place], [place] (Work) [id number] documented as of this encounter
--- OUTSIDE RECORDS SUMMARY | 2018-10-14 18:07 | XMS REPORT | Summary of Care ---
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 in for a follow up. Echo done on 09/12/18. Encounter Details Date Type Department Care Team Description 09/19/2018 Office Visit DIANA Velez (arteriosclerotic heart disease) (Primary Dx); Cardiology MD Carter Essential hypertension, benign; [address] Thoracic aortic aneurysm without rupture (HCC); [place] [address] [place] [address] Mixed hyperlipidemia; [phone] Anomalous coronary artery origin Allergies Active Allergy Reactions Severity Noted Date Comments Carbidopa W/Levodopa Rash 10/18/2012 Rice GI Reaction 10/29/2012 Sudafed Cold-Cough Dermatologic Reaction 10/18/2012 Zinc Other 08/23/2017 States his ribs itch on the inside documented as of this encounter (statuses as of 09/19/2018) Medications Medication Sig Dispensed Refills Start Date End Date Status Blood Glucose Brand: VERIO IQ 100 Strip 5 12/26/2012 Active Monitoring Suppl (BLOOD Dx: 250.00 GLUCOSE TEST STRIPS NON-INSULIN STRP) DEPENDENT Test Blood Glucose 1 time(s) A DAY docusate sodium Take 1 Cap by 60 Cap 0 01/29/2015 Active (COLACE) 100 MG Oral mouth TWICE Cap DAILY. Glucose Blood In Vitro 1 Each by In 100 Each 5 07/13/2017 Active Strip Vitro route DAILY. Verio IQ, dx 250.00, non insulin Levocetirizine Take 5 mg by 0 Active [...] 07/02/2018 1:56 PM Glucose Blood In Vitro Strip 1 Strip by In Vitro 100 Each 5 10/02/2017 Active route DAILY. E11.9, no insulin ROPINIROLE HYDROCHLORIDE 4 MG TAKE 2 TABLETS BY MOUTH 180 Tab 4 10/08/2017 Active Oral TabIndications: Restless AT BEDTIME leg syndrome Aspirin 81 MG Oral Tab EC Take by mouth. 0 Active atorvastatin (LIPITOR) 80 MG Take 1 Tab by mouth 90 Tab 3 04/10/2018 Active Oral TabIndications: Mixed DAILY. hyperlipidemia ALPRAZolam (XANAX) 0.5 MG Oral TAKE 1 TAB BY MOUTH 90 Tab 0 05/06/2018 Active TabIndications: Depression with THREE TIMES DAILY anxiety NEEDED FOR ANXIETY nortriptyline (PAMELOR) 50 MG Take 50 mg by mouth 0 Active Oral Cap EVERY BEDTIME. Metoprolol Succinate 200 MG Take by mouth. 0 Active Oral TABLET SR 24 HR pantoprazole (PROTONIX) 40 MG TAKE 1 TABLET BY MOUTH 90 Tab 3 07/04/2018 Active Oral Tab EC EVERY DAY gabapentin (NEURONTIN) 300 MG TAKE 3 CAPS BY MOUTH 540 Cap 3 09/03/2018 Active Oral Cap TWICE DAILY. trazodone (DESYREL) 50 MG Oral Take 1-3 Tabs by mouth 90 Tab 0 09/10/2018 Active Tab EVERY BEDTIME NEEDED (sleep). spironolactone (ALDACTONE) 25 Take 1 Tab by mouth 30 Tab 5 09/19/2018 Active MG Oral TabIndications: DAILY. Essential hypertension, benign documented as of this encounter (statuses as of 09/19/2018) Active Problems Problem Noted Date Pre-diabetes 08/29/2018 Family history of colon cancer 06/13/2017 Overview: Brother age 60 Tubular adenoma 06/13/2017 Overview: Colonoscopy Dr Shelton 2014 Chronic bilateral low back pain with sciatica 10/19/2016 Controlled type 2 diabetes mellitus without complication, without 10/19/2016 long-term current use of insulin History of tobacco use 07/27/2016 Overview: Quit 2007 30-40 pack per day years Numbness in feet 04/05/2015 Herniated nucleus pulposus, L4-5 right 01/25/2015 Restless leg syndrome 03/09/2014 Herniated nucleus pulposus, L4-5 left 01/19/2014 Displacement of lumbar intervertebral disc without myelopathy 01/05/2014 White coat hypertension 12/19/2013 Overview: Home blood pressure 130s/80s Non-cardiac chest pain 11/25/2013 Overview: [facility] admission rule out myocardial infarction November [address] Deng negative Non-allergic rhinitis 12/31/2012 Overview: Allergy testing normal BMI 34.0-34.9,adult 10/18/2012 Overview: BMI 36 /13 Migraine headache 10/18/2012 Overview: Neurologist Dr Pace [facility] Mixed hyperlipidemia 10/18/2012 Cervical spinal stenosis 10/18/2012 Overview: Cervical mri severe C5-6 and C6-7 mri [facility] Oct 2015 Thoracic disc disease 10/18/2012 Overview: Mri thoracic spine [facility] October 2015 Lumbar spinal stenosis 10/18/2012 Overview: Mri 2007 no surgery Essential hypertension, benign 10/18/2012 Pulmonary emphysema 10/18/2012 Overview: 30-40 pack per day years quit 2007 GERD (gastroesophageal reflux disease) 10/18/2012 Depression with anxiety 10/18/2012 Overview: In remission fluoxitene since 2010 Obstructive sleep apnea 10/18/2012 documented as of this encounter (statuses as of 09/19/2018) Resolved Problems Problem Noted Date Resolved Date Extreme obesity 06/13/2017 08/09/2018 Back pain, lumbosacral 01/05/2014 10/29/2015 Sprain of lumbar region 11/22/2012 12/31/2012 Type II diabetes mellitus, uncontrolled 10/18/2012 10/19/2016 Overview: Hemoglobin A1C 6.1% spring 2012 Chronic rhinitis 10/18/2012 12/31/2012 documented as of this encounter (statuses as of 09/19/2018) Immunizations Name Administration Dates Next Due DTAP [...] Sign Reading Time Taken Comments Blood Pressure 128/82 09/19/2018 4:10 PM EDT Pulse 48 09/19/2018 4:10 PM EDT Temperature - - Respiratory Rate - - Oxygen Saturation - - Inhaled Oxygen Concentration - - Weight 99.8 kg (220 lb) 09/19/2018 4:10 PM EDT Height 174 cm (5' 8.5") 09/19/2018 4:10 PM EDT Body Mass Index 32.96 09/19/2018 4:10 PM EDT documented in this encounter Patient Instructions Patient InstructionsCarter Ball MD - 09/19/2018 4:20 PM EDT Great job with the weight loss; keep it up! Email me the dose of your metoprolol; whatever the dose is, we'll plan to cut it in half. START taking spironolactone 25mg once every morning. Get your fasting bloodwork checked about 2 weeks after starting the spironolactone. Follow up with me in 6 months or sooner if needed. documented in this encounter Progress Notes Carter Ball MD - 09/19/2018 4:20 PM EDT [facility] Note Patient: Van Diaz Date of : 1965 Date of Service: 09/19/2018 REFERRING PRACTITIONER: Emir Vera PRIMARY CARE PROVIDER: Emir Vera Chief Complaint: Chief Complaint Patient presents with Follow Up Pt. in for a follow up. Echo done on 09/12/18. History of Present Illness: We had the pleasure of seeing Van Diaz today at the [facility]. He is a 53-y.o. male with obesity, prior tobacco abuse, COPD/asthma, MICHELLE on CPAP, migraines, hyperlipidemia, HTN, DM2, prior tobacco abuse, and a borderline thoracic aortic aneurysm. 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. Mr. Diaz returns to cardiology clinic today for routine f/u. Since his last visit with me in February he was seen by Coco Valdez in March for a BP check. At that visit his BP was OK and Coco increased his Lipitor to 80mg. He's been able to lose over 70 pounds since January, and he was admitted to [facility] in June with hypoglycemia and hypotension in the setting of having a few beers. His amlodipinewas stopped at that time and his ARB was decreased. From a symptom standpoint now, he reports feeling quite a bit better since his weight loss. Breathing feels pretty good and he denies CP/pressure. Denies any palpitations, lightheadedness, or syncope. No orthopnea, paroxysmal dyspnea , or lower extremity edema (except when he has high sodium meals). Wears his CPAP regularly. Patient Active Problem List Diagnosis BMI 34.0-34.9,adult Migraine headache Mixed hyperlipidemia Cervical spinal stenosis Thoracic disc disease Lumbar spinal stenosis Essential hypertension, benign Pulmonary emphysema (HCC) GERD (gastroesophageal reflux disease) Depression with anxiety Obstructive sleep apnea Non-allergic rhinitis Non-cardiac chest pain White coat hypertension Displacement of lumbar intervertebral disc without myelopathy Herniated nucleus pulposus, L4-5 left Restless leg syndrome Herniated nucleus pulposus, L4-5 right Numbness in feet History of tobacco use Chronic bilateral low back pain with sciatica Controlled type 2 diabetes mellitus without complication, without long- term current use of insulin (HCC) Family history of colon cancer Tubular adenoma Pre-diabetes Past Medical History: Diagnosis Date Diabetes mellitus Food allergy rice causes vomiting Reflux Past Surgical History: Procedure Laterality Date OTHER CERVICAL FUSION WI LAMNOTMY INCL W/DCMPRSN NRV ROOT 1 INTRSPC LUMBR N/A 01/28/2015 Procedure: DISCECTOMY, LUMBAR RIGHT L4-5; Surgeon: Rigoberto Nelson MD; Location: [facility] MAIN OR [place] REMOVE TONSILS/ADENOIDS,<12 Y/O REPAIR OF HERNIA Allergies Allergen Reactions Levodopa W-Carbidopa [Carbidopa W/Levodopa] Rash Rice GI Reaction Sudafed Cold-Cough Dermatologic Reaction Zinc Other States his ribs itch on the inside Current Outpatient Medications Medication Sig Albuterol Sulfate [...] Suppl (BLOOD GLUCOSE TEST STRIPS STRP) Brand: VERIO IQ Dx: 250.00 NON-INSULIN DEPENDENT Test Blood Glucose 1 time(s) A DAY docusate sodium (COLACE) 100 MG Oral Cap Take 1 Cap by mouth TWICE DAILY. Fluticasone Furoate-Vilanterol (BREO ELLIPTA) 200-25 MCG/INH Inhalation AEROSOL POWDER, BREATH ACTIVATED Take 1 Puff by inhalation DAILY. gabapentin (NEURONTIN) 300 MG Oral Cap TAKE 3 CAPS BY MOUTH TWICE DAILY. Glucose Blood In Vitro Strip 1 Each by In Vitro route DAILY. Verio IQ, dx 250.00, non insulin Glucose Blood In Vitro Strip 1 Strip by In Vitro route DAILY. E11.9, no insulin Irbesartan 300 MG Oral Tab Take 1 Tab by mouth DAILY. (Patient taking differently: Take 0.5 Tabs by mouth DAILY.) Levocetirizine Dihydrochloride 5 MG Oral Tab Take 5 mg by mouth DAILY NEEDED. Metoprolol Succinate 200 MG Oral TABLET SR 24 HR Take by mouth. nortriptyline (PAMELOR) 50 MG Oral Cap Take [...] No current facility-administered medications for this visit. Family History Adopted: Yes Problem Relation Age of Onset Cancer Mother Diabetes Mother Obesity Mother Cancer Sister breast Cancer Brother colon ca Cancer Sister breast Cancer Sister breast Alcohol/Drug Brother Depression/Depressed Brother Social History Socioeconomic History Marital status: Spouse [...] file Gets together: Not on file Attends jehovah's witness service: Not on file Active member of [...] International Travel Not Asked Service Yes Comment: [employer] Occupational Exposure Not Asked Seat Belt Not Asked Self-Exams Not Asked Sleep Concern Yes Comment: sleep apnea Special Diet Yes Comment: low fat low carbo diet for diabetes Stress Concern Not Asked Weight Concern Yes Comment: had lost wt from 276 lbs to 240 lbs 2011 Social History Narrative Lives in [place] area Step daughter Not currently working Grew up in [place] Review of Systems - Negative except as noted in HPI. Physical Exam: Vitals: 09/19/18 1610 BP: 128/82 BP Location: Right arm Patient Position: Sitting Pulse: (!) 48 Weight: 220 lb (99.8 kg) Height: 5' 8.5" (1.74 m) Body mass index is 32.96 kg/m. General: Obese, alert 53-y.o. male in NAD HEENT: anicteric, MMM, no E/E OP, conj pink Neck: JVP a little difficult to appreciate but appears WNL; no carotid bruits or LAD CV: RRR, normal s1/s2, no appreciable murmurs, rubs, or gallops Pulm: CTA bilaterally without wheezes, rhonchi, or rales. No increased work of breathing. Abd: soft, obese, NT, ND, +BS. No appreciable pulsatile masses or bruits. Ext: Trace bilateral lower extremity edema, no cyanosis, no cords, redness, or warmth, 2+ PT pulses bilaterally Neuro: no gross focal deficits Skin: no visible lesions Labs: Lab Results Component Value Date NA 139 02/08/2018 K 4.0 02/08/2018 CL 96 (L) 02/08/2018 CO2 30 02/08/2018 GLUCOSE 201 (H) 02/08/2018 BUN 13 02/08/2018 CREATININE 0.8 02/08/2018 CALCIUM 9.7 02/08/2018 TP 7.2 02/08/2018 ALBUMIN 4.4 02/08/2018 AST 49 02/08/2018 ALT 43 02/08/2018 ALK 75 02/08/2018 TBILI 0.2 02/08/2018 EGFR >60 02/08/2018 No results found for: BNP Lab Results Component Value Date CHOL 196 02/08/2018 TRIG 364 (H) 02/08/2018 HDL 23 (L) 02/08/2018 LDL 100 (H) 02/08/2018 LDLHDLRATIO 4.4 02/08/2018 CHOLHDLRATIO 8.5 02/08/2018 Cardiac Studies: EKG Today (I personally reviewed): Sinus lowell in high 40s. Otherwise normal. TTE 09/12/18: IMPRESSION: Mild concentric LVH with Grade II diastolic dysfunction and mild left atrial enlargement. Normal LV systolic function with no regional wall motion abnormalities; estimated LVEF 60-65%. Mild right heart enlargement with normal RV contractility. No hemodynamically significant valvular abnormalities. No pericardial effusion. Mildly dilated aortic root and ascending aorta. Compared to prior [facility] echo report 11/28/13, the aortic root measures slightly larger (3.8cm --> 4cm). No other significant changesare noted. Chest CTA at [facility] 02/19/18: Ascending aortic ectasia measuring up to 3.4cm unchanged from December 2014. No evidence of aortic dissection. TTE at [facility] 11/28/13: Left Heart Cath at [facility] 11/22/13: 1. Mild-moderate CAD with at most 50% disease of ostial diagonal branch. 2. Anomalous Cx coming off the right coronary cusp. 2. Normal LVEF 55%. Assessment & Plan: Van Diaz is a 53-y.o. 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. ICD-9-CM ICD-10-CM 1. ASHD (arteriosclerotic heart disease) 414.00 I25.10 AMBULATORY 12 LEAD EKG ( GLOBAL) LIPID PROFILE 2. Essential hypertension, benign 401.1 I10 BASIC METABOLIC PANEL spironolactone (ALDACTONE) 25 MG Oral Tab 3. Thoracic aortic aneurysm without rupture (HCC) 441.2 I71.2 4. Mixed hyperlipidemia 272.2 E78.2 5. Anomalous coronary artery origin 746.85 Q24.5 1. HTN and Borderline Thoracic Aortic Aneurysm: Only 3.4cm on chest CTA at [facility] in February 2018. Root was 4cm at sinuses of Valsalva on recent echo. I again explained to him that we simply need to aggressively control his BP at this point. Goal BP should be < 130/80 mmHg. Will proceed as follows: Cont irbesartan He's pretty bradycardic today on the current metoprolol dose. He's not sure of his dose, so he's going to email me to let me know. Whatever the dose is, I'm going to have him cut it in half. Was previously on 10mg of amlodipine but that was stopped with the hypotension in the hospital. Given the diastolic dysfunction seen on echo, I'm going to start him on low dose spironolactone 25mg daily. He's had problems with renal dysfunction on HCTZ in the past, so I'm going to watch his BMPclosely. I congratulated him on his weight loss and encouraged him to continue and to continue working on a low sodium diet. 2. Nonobstructive Coronary Artery Disease: Currently asymptomatic from an ischemic standpoint. I recommend the following medical regimen: Antiplatelets: Cont ASA 81mg daily. Statin: Cont atorvastatin 80mg daily. LDL was 100 in 01/2018. Given his known plaque I thinkwe should target an LDL of < 70. Checking another FLP with his upcoming labs. Beta-[place]: Metoprolol as above. JAQUAN-inhibitor/ARB: Cont irbesartan. Thank you for allowing me to participate in the care of Van Diaz. We will plan on f/u in our office in 6 months or sooner prn. If you have any questions or concerns please feel free to call ouroffice at . Carter Ball MD, 09/19/2018, 16:57 This note was created using my previous note as a template; changes were made where appropriate, andall information in the current note is up to date to the best of my knowledge.Electronically signed by Carter Ball MD at 2018 5:02 PM EDTdocumented in this encounter Plan of Treatment Date Type Specialty Care Team Description 09/27/2018 Lab Internal Medicine 10/01/2018 Office Visit Internal Medicine Emir Vera MD [address] [place] [id number] 10/04/2018 Lab Internal Medicine 03/26/2019 Office Visit Cardiology Carter Ball MD [facility] [place] [address] Name Type Priority Associated Diagnoses Order Schedule AMBULATORY 12 LEAD EKG EKG Routine ASHD (arteriosclerotic Ordered: 2018 (GLOBAL) heart disease) LIPID PROFILE Lab Routine ASHD (arteriosclerotic Expected: 09/19/2018 heart disease) (Approximate), Expires: 09/20/2019 BASIC METABOLIC PANEL Lab Routine Essential hypertension, Expected: 2018 benign (Approximate), Expires: 03/18/2019 Health Maintenance Due Date Last Done Comments ZOSTER IMMUNIZATION SERIES 2014 (1 of 2) MEDICARE ANNUAL WELLNESS 08/23/2018 08/23/2017 VISIT FOOT EXAM 10/08/2018 10/08/2017, 10/08/2017, 09/25/2016, Additional history exists HEMOGLOBIN A1C 12/27/2018 06/26/2018, 02/08/2018, 10/18/2017, Additional history exists LIPID DISORDER SCREENING 04/10/2019 [...] Type Problems Progress Blood Pressure Blood Pressure 128/82 No [place], < 140/90 (09/19/2018 Emir Lua, 4:10 PM EDT) Note: This is an individualized treatment [...] your depression. Diabetes < 7.0 Diabetes 6.0 (02/08/2018 10:11 AM EST) Emir Morgan MD Note: Diabetes Care Plan [...] raise sugar. record my blood sugar results. [place] is safe and secure way for you [...] provider and work towards quitting. Education Resources: [place] Diabetic Association Site http://diabetes.org Academy of Nutrition & Dietetics Site http://eatright.org National Smoking Cessation Site http://smokefree.gov Glycohemoglobin A1c < 7.0 Diabetes 6.0 (02/08/2018 10:11 AM Emir Morgan EST) MD Note: This is an individualized treatment (diabetes control, HgbA1C) goal for Van Diaz: Displayed above is your progress towards your HgbA1C goal. Your goal is shown above (on the left); your most recent HgbA1C is shown on the right. Note that lower numbers are better. Weight loss vs. 18 mo Lifestyle 61 (09/19/2018 4:10 PM No Emir Vera MD max (lbs) >= 10 EDT) Note: This is an individualized lifestyle goal for Van Diaz: Your body mass index (BMI) is more than 30. You should lose weight. A reasonable starting goal is to lose 10 pounds. Displayed above is how many pounds you have lost thus far towards your 10 pound weight loss goal. Keep immunizations current Lifestyle No Emir Vera MD Note: This is an individualized lifestyle [...] depression. 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
--- OUTSIDE RECORDS SUMMARY | 2018-10-14 18:07 | XMS REPORT | Continuity of Care Document ---
:1965 External Reference #:[id number] Author Name Tim Dyer M.D. 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 Onset: 09/19/2018 Urge incontinence of urine Tim Dyer M.D. Onset: 09/19/2018 Social History Type Date Description Comments Sex Unknown ETOH Use Currently consumes alcohol socially Tobacco Use Start: Unknown End: Patient is a former smoker quit 2007 Unknown Recreational Drug Use Denies Drug Use Smoking Status Reviewed: 09/18/18 Patient is a former smoker quit 2007 Allergies, Adverse Reactions, Alerts Active Allergies Reaction Severity Comments Date Sudafed 09/19/2018 Rice 09/19/2018 Levodopa 09/19/2018 Medications Active Medications SIG Qnty Indications Ordering Provider Date Gabapentin take one tablet Unknown 800mg Tablets by mouth twice a day Metoprolol Succinate 1 by mouth every Unknown ER day 100mg Tablets ER 24HR Irbesartan 1 by mouth every Unknown 300mg Tablets day Atorvastatin Calcium 1 by mouth every Unknown 80mg day Tablets Aspir-Low 1 by mouth every Unknown 81mg Tablets DR day Breo Ellipta take one puff in Unknown in the morning 100-25mcg/Inh Aerosol for copd Immunizations Description No Information Available Vital Signs Date Vital Result Comment 09/19/2018 8:36am BP Systolic Sitting Right Arm 160 mmHg BP Diastolic Sitting Right Arm 79 mmHg Body Temperature 97.3 F Heart Rate 50 /min Respiratory Rate 18 /min Height 68 inches 5'8" Weight 224.00 lb BMI (Body Mass Index) 34.1 kg/m2 BSA (Body Surface Area) 2.14 m2 Iselin body weight in kilograms 70 kg O2 % BldC Oximetry 99 % Results Test Date Facility Test Result H/L Range Note Urine Dipstick 09/19/2018 [facility] Ua Color Yellow Yellow Ua Clarity Clear Clear Ua Leuko Neg Negative Ua Nitrite Neg Negative Ua Urobilinogen 0.2 0.2 - 1.0 E.U./dL Ua Protein Neg Negative Ua PH 6.0 Low 6.5-7.5 Ua Blood Neg Negative Ua Specific [place] 1.020 1.010-1.030 Ua Ketones Neg Negative Ua Bilirubin Neg Negative Ua Glucose Neg Negative Procedures Description No Information Available Medical Devices Description No Information Available Encounters Description No Information Available Assessments Date Code Description Provider 09/19/2018 N39.41 Urge incontinence Tim Dyer M.D. Plan of Treatment Future Appointment(s):10/22/2018 9:00 am - Tim Dyer M.D. at [id number] - Tim Dyer M.D.N39.41 Urge incontinenceComments:Patient with symptoms of urgency and urge incontinence. He has a good flow rate in the low postvoidresidual. We did discuss behavioral modifications like limiting his coffee intake and frequent voiding. Patient does not feel like he could limit his fluid intake due to his dry mouth. We'll do a trial of Myrbetriq. Discussed with the patient checking his blood pressure at home. Functional Status Description No Information Available Mental Status Description No Information Available Referrals Description No Information Available
[2018-10-14 18:23] LABS: ABS Eosinophils 0.4 10^3/ul (0-0.6); ABS Lymphocytes 1.2 10^3/ul (1.0-4.8); ABS Monocytes 0.6 10^3/ul (0-0.8); ABS Neutrophils 6.4 10^3/ul (1.5-7.7); Eosinophil % 4.1 %; Hematocrit 48 % (42-52); Hemoglobin 16.2 g/dL (14.0-18.0); Mean Corpuscular HGB Conc 34 g/dL (31-36); Mean Corpuscular Hemoglobin 30 pg (27-31); Mean Corpuscular Volume 88 fL (80-94); Mean Platelet Volume 8.2 fL (7.4-10.4); Platelet Count 192 10^3/uL (150-450); Red Blood Count 5.47 10^6 /uL (4.18-5.48); Red Cell Distribution Width 14 % (10-15); White Blood Count 8.6 10^3/uL (3.5-10.8)
[2018-10-14 18:40] LABS: ALT 17 U/L (7-52); AST 15 U/L (13-39); Albumin 4.3 g/dL (3.2-5.2); Albumin/Globulin Ratio 1.9 (1-3); Alkaline Phosphatase 71 U/L (34-104); Anion Gap 6 mmol/L (2-11); BUN/Creatinine Ratio 15.1 (8-20); Blood Urea Nitrogen 13 mg/dL (6-24); CO2 Carbon Dioxide 28 mmol/L (22-32); Chloride 103 mmol/L (101-111); EGFR African American 112.1 (>60); EGFR Non-African American 92.7 (>60); Globulin 2.3 g/dL (2-4); Glucose 124 mg/dL (70-100); Sodium 137 mmol/L (135-145); Total Protein 6.6 g/dL (6.4-8.9)
[2018-10-14 18:46] LABS: Acetaminophen < 15 mcg/mL; Alcohol < 10 mg/dL (<10); Salicylate < 2.50 mg/dL (<30)
[2018-10-14] MEDS ORDERED: NS 0.9% 1000 ML** 1,000 ML IV ONE (18:46)
[2018-10-14 19:01] LABS: TSH (Thyroid Stimulating Horm) 0.33 mcIU/mL (0.34-5.60)
[2018-10-14] MEDS ORDERED: Albuterol HFA INHALER* 8 gm MDI INH PRN (21:07)
[2018-10-14] MEDS ORDERED: NS 0.9% 1000 ML** 1,000 ML IV SCH (21:15)
--- NOTE | 2018-10-14 21:48 | ADMNOTE ---
Subjective Date of Service: 10/14/18 Interval History: 53 year old male history of depression brought to the emergency room following suicide attempt. Pt had an argument with preceding the attempt, was heavily drinking and proceeded to write what appears to be a suicidal note and ingestive multiple pills. Per , pt is on multiple medications but the pills he seemed to have ingested are trazodone and xanax. Currently on 2L NC for comfort. EKG was normal in the ED. His vitals have been stable and initial labs were normal. Neg tylenol and salicylate levels. Toxicology consulted in the ED. Otherwise, pt is a with providers from the [facility]. On lexapro and said he was being weaned off of that and has been taking half a pill for a couple weeks now. Has history of suicidal attempts when he was younger. Review of Systems - Measurements Intake and Output: Intake and Output Last 24 Hours 10/12/18 10/13/18 10/14/18 10/15/18 06:59 06:59 06:59 06:59 Weight 218 lb - Review of Systems Constitutional Symptoms: Negative: Weight Gain, Weight Loss, Weakness, Fatigue, Fever, Night Sweats, Unexplained Falls, Other Dermatology: Negative: Normal, Rash, Skin Lesions, Cancer, Skin Lumps, Other HEENT: Negative: Normal, Change in Hearing, Vertigo, Dental Problems, Tinnitus, Sinus Problem, Other Eyes: Negative: Normal, Change in Vision, Double Vision, Eye Pain, Glaucoma, Cataract, Contacts or Glasses, Other Thyroid: Negative: Normal, Goiter, Thyroid Nodule, Cold Intolerance, Heat Intolerance , Sweatiness, Tremor, Frequent Defecation, Constipation, Palpitations, Primary Hypothyroidism, Primary Hyperthyroidism, Weight Loss, Weight Gain, Change in Skin/Hair, Change in Menstruation, Radiation Exposure, Other Pulmonary: Negative: Normal, Cough, Sputum, Hemoptysis, Wheezing, Respiratory Distress, Shortness of Breath, COPD, Asthma, Exercise Intolerance, Home Oxygen, Other Cardiology: Negative: Normal, Chest Pain, Shortness of Breath, Palpitations, Swelling of Ankles, Peripheral Vascular Dis, Edema, Faintness, Syncope, Claudication, Proximal NocturnalDyspnea, Orthopnoea, Other Gastroenterology: Negative: Normal, Abdominal Pain, Nausea, Vomiting, Anorexia, Indigestion, Difficulty Swallowing, Heartburn, Constipation, Diarrhea, Blood in Stools, Change in Bowel Habits, Haematemesis, Melena, Other Musculoskeletal: Negative: Joint Pain, Joint Stiffness, Arthritis, Osteoporosis, Low Back Pain , Sciatica, Joint Deformities, Kyphoscoliosis, Other Neurology: Negative: Normal, Headache, Migraines, Change in Vision, Diplopia, Dizziness , Change in Balancing, Change in Coordination, Change in Memory, Change in Speech, Change in Sphincter Function, Change in Walking, Numbness\Paresthesiae, Unexplained Weakness, Hx of Stroke\TIA, Hx of Seizures, Other Psychiatry: Positive: Depression, Depressed Mood, Guilt Feelings, Unusual Anxiety, Suicidal Ideation Objective Active Medications: Albuterol (Ventolin Hfa Inhaler*) 1 puff INH BID PRN PRN Reason: SOB/WHEEZING Aspirin (Aspirin Ec Tab*) 81 mg PO DAILY [facility] Atorvastatin Calcium (Lipitor*) 40 mg PO BEDTIME BRITTANE[facility] Enoxaparin Sodium (Lovenox(*)) 30 mg SUBCUT Q24H [facility]ANE[facility] Famotidine (Pepcid Tab*) 20 mg PO BID [facility] Gabapentin (Neurontin Cap(*)) 900 mg PO BID [facility] Sodium Chloride (Ns 0.9% 1000 Ml) 1,000 mls @ 1,000 mls/hr IV PER RATE [facility] Stop: 10/14/18 22:14 Losartan Potassium (Cozaar Tab*) 100 mg PO BEDTIME BRITTANEY Metoprolol Succinate (Toprol Xl Tab*) 100 mg PO BEDTIME [facility] Pantoprazole Sodium (Protonix Tab*) 40 mg PO DAILY [facility] Spironolactone (Aldactone Tab*) 25 mg PO DAILY [facility] Vital Signs - 8 hr 10/14/18 10/14/18 10/14/18 18:01 18:11 18:31 Temperature 98.1 F Pulse Rate 106 109 105 Respiratory 24 24 22 Rate Blood Pressure 145/91 145/91 135/88 (mmHg) O2 Sat by Pulse 89 94 94 Oximetry 10/14/18 10/14/18 10/14/18 19:00 19:01 19:31 Temperature Pulse Rate 100 99 95 Respiratory 18 21 16 Rate Blood Pressure 146/93 144/90 (mmHg) O2 Sat by Pulse 99 99 96 Oximetry 10/14/18 10/14/18 10/14/18 20:00 20:02 20:32 Temperature Pulse Rate 90 86 87 Respiratory 12 16 15 Rate Blood Pressure 141/86 100/60 (mmHg) O2 Sat by Pulse 97 97 98 Oximetry Oxygen Devices in Use Now: Nasal Cannula Eyes: PERRLA Ears/Nose/Mouth/Throat: Mucous Membranes Moist Neck: NL Appearance and Movements; NL JVP Respiratory: Symmetrical Chest Expansion and Respiratory Effort, Clear to Auscultation Cardiovascular: NL Sounds; No Murmurs; No JVD Abdominal: NL Sounds; No Tenderness; No Distention Lymphatic: No Cervical Adenopathy Extremities: No Edema Skin: No Rash or Ulcers Neurological: - - sleepy, sluggish Result Diagrams: 10/14/18 18:16 10/14/18 18:16 Assess/Plan/Problems-Billing Assessment: - Patient Problems (1) Suicidal ideation Current Visit: Yes Status: Acute Onset Date: 10/14/18 Code(s): R45.851 - SUICIDAL IDEATIONS SNOMED Code(s): 4385967 Comment: pt admitted to suicidal attempt with the trazodone and xanax Has hx of depression but was on reduced dose Remote history of suicide attempt when he was younger psych made aware by the ED shore worker consult placed needs 1 to 1 (2) Overdose Current Visit: Yes Status: Acute Code(s): T50.901A - POISONING BY UNSP DRUG/ MEDS/BIOL SUBST, ACCIDENTAL, INIT SNOMED Code(s): 92035991 Comment: took a large amount of trazodone and xanax Acetaminophen and salicylate levels were low ED nurse contacted toxicology Initial EKG was normal Tele monitoring for now. Pt too drowsy to be transferred to psych. Admitted to medicine (3) COPD (chronic obstructive pulmonary disease) Current Visit: No Status: Chronic Priority: Medium Code(s): J44.9 - CHRONIC OBSTRUCTIVE PULMONARY DISEASE, UNSPECIFIED SNOMED Code(s): 20956838 (4) Depression Current Visit: No Status: Chronic Priority: Medium Code(s): F32.9 - MAJOR DEPRESSIVE DISORDER, SINGLE EPISODE, UNSPECIFIED SNOMED Code(s): 82520971 Comment: holding Associated Content (5) Diabetes mellitus type 2 in obese Current Visit: No Status: Chronic Priority: Medium Code(s): E11.9 - TYPE 2 DIABETES MELLITUS WITHOUT COMPLICATIONS; E66.9 - OBESITY, UNSPECIFIED SNOMED Code(s): 11258427 Comment: Not on any medications at home diabetic diet FS ACHS (6) Hypertension Current Visit: No Status: Chronic Priority: Medium Code(s): I10 - ESSENTIAL (PRIMARY) HYPERTENSION SNOMED Code(s): 80701437 (7) Obesity Current Visit: No Status: Chronic Priority: Medium Code(s): E66.9 - OBESITY, UNSPECIFIED SNOMED Code(s): 906615832 (8) Obstructive sleep apnea on CPAP Current Visit: No Status: Chronic Priority: Medium Code(s): G47.33 - OBSTRUCTIVE SLEEP APNEA (ADULT) (PEDIATRIC) SNOMED Code(s): 90563966 Comment: CPAP (9) Restless leg syndrome Current Visit: No Status: Chronic Priority: Low Comment: holding chet bergman
[2018-10-14] MEDS ORDERED: Metoprolol Succinate XL TAB* 100 MG PO SCH (22:00)
[2018-10-14] MEDS ORDERED: Enoxaparin(*) 30 MG/0.3 ML SYR SUBCUT SCH (22:00)
[2018-10-14 22:04] LABS: Urine Appearance Clear; Urine Bilirubin Negative (Negative); Urine Blood Negative (Negative); Urine Color Yellow; Urine Glucose Negative (Negative); Urine Ketones Negative (Negative); Urine Nitrite Negative (Negative); Urine Protein Negative (Negative); Urine Specific Gravity 1.014 (1.010-1.030); Urine Urobilinogen Negative (Negative)
[2018-10-14 22:24] LABS: Urine Benzodiazepine Screen Presumptive Positive (None Detect); Urine Opiates Screen None Detected (None Detect)
[2018-10-15] MEDS: Tetan/Diph/Pertus SYR(Tdap)* 0.5 ML SYR(BOOSTRIX) use SYR IM ONE ×2 (03:43→10:15)
[2018-10-15] MEDS ORDERED: Gabapentin CAP(*) 300 MG PO SCH (09:00)
[2018-10-15] MEDS ORDERED: Famotidine TAB* 20 MG PO SCH (09:00)
[2018-10-15] MEDS ORDERED: Pantoprazole TAB * 40 MG TAB PO SCH (09:00)
[2018-10-15] MEDS ORDERED: Aspirin EC TAB* 81 MG TAB.EC PO SCH (09:00)
[2018-10-15] MEDS ORDERED: Spironolactone TAB* 25 MG PO SCH (09:00)
--- NOTE | 2018-10-15 10:16 | PN ---
Subjective Date of Service: 10/15/18 Interval History: Admitted overnight. No other significant events. Patient reports feeling weak but not as bad as yesterday. Denies other symptoms. Amenable to psych consult today. Able to urinate. Denies abd pain, n/v /c/d, chest pain, SOB. Objective Active Medications: Albuterol (Ventolin Hfa Inhaler*) 1 puff INH BID PRN PRN Reason: SOB/WHEEZING Aspirin (Aspirin Ec Tab*) 81 mg PO DAILY [facility] Last Admin: 10/15/18 08:40 Dose: 81 mg Atorvastatin Calcium (Lipitor*) 40 mg PO BEDTIME BR[facility]ANE[facility] Enoxaparin Sodium (Lovenox(*)) 40 mg SUBCUT BEDTIME [facility] Famotidine (Pepcid Tab*) 20 mg PO BID PRN PRN Reason: HEARTBURN Fluticasone/Vilanterol (Breo Ellipta Mdi 100/25(Nf)) 1 puff INH DAILY [facility] Losartan Potassium (Cozaar Tab*) 100 mg PO BEDTIME [facility] Metoprolol Succinate (Toprol Xl Tab*) 100 mg PO BEDTIME [facility] Last Admin: 10/14/18 23:08 Dose: 100 mg Spironolactone (Aldactone Tab*) 25 mg PO DAILY [facility] Last Admin: 10/15/18 08:41 Dose: 25 mg Vital Signs - 8 hr 10/15/18 10/15/18 10/15/18 03:15 07:15 08:00 Temperature 97.9 F 97.8 F Pulse Rate 69 66 Respiratory 20 20 20 Rate Blood Pressure 115/67 135/81 (mmHg) O2 Sat by Pulse 99 97 Oximetry 10/15/18 08:41 Temperature Pulse Rate Respiratory 16 Rate Blood Pressure (mmHg) O2 Sat by Pulse Oximetry Appearance: tired-appearing but alert and interactive, answers questions appropriately Ears/Nose/Mouth/Throat: Clear Oropharnyx, Mucous Membranes Moist Neck: NL Appearance and Movements; NL JVP Respiratory: Symmetrical Chest Expansion and Respiratory Effort, Clear to Auscultation Cardiovascular: NL Sounds; No Murmurs; No JVD, RRR Abdominal: NL Sounds; No Tenderness; No Distention, No Hepatosplenomegaly Extremities: No Edema Skin: No Rash or Ulcers Neurological: Alert and Oriented x 3 Result Diagrams: 10/14/18 18:16 10/14/18 18:16 Assess/Plan/Problems-Billing 53M with MDD, COPD, HTN, CAD, presents after overdose of trazodone (30 pills) and alprazolam (45 pills). Found to be somnolent but without other exam or lab abnormalities. QTc wnl. - Patient Problems (1) Overdose Comment: Admits to approx 30 trazodone and 45 alprazolam pills. No lab abnormalities or EKG changes. Acetaminophen and salicylate levels were low - Tele monitoring for now, repeat EKG - supportive care, close monitoring (2) Suicidal ideation Comment: History of MDD, now with suicide attempt with trazodone and Xanax. Remote history of suicide attempt when he was younger. - pending psych eval - cont 1 to 1 (3) Coronary artery disease Comment: - cont home aspirin and statin (4) COPD (chronic obstructive pulmonary disease) Comment: - cont home Breo Ellipta - albuterol prn (5) Depression Comment: - previously on escitalopram and trazodone - defer further management to psych - will not order psych meds at this time (6) Hypertension Comment: - cont home metoprolol, ARB, and spironolactone
[2018-10-15] MEDS ORDERED: Famotidine TAB* 20 MG PO PRN (10:51)
[2018-10-15] MEDS ORDERED: Mometasone/Formoter 100/5 MDI INH SCH (11:00)
[2018-10-15] MEDS ORDERED: Escitalopram * 10 MG TAB PO SCH (15:00)
[2018-10-15 15:21] VITALS: BP 125/79
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
[2018-10-15] MEDS ORDERED: Enoxaparin(*) 40 MG/0.4 ML SYR SUBCUT SCH (21:00)
[2018-10-15] MEDS ORDERED: Atorvastatin* 40 MG TAB PO SCH (21:00)
[2018-10-15] MEDS ORDERED: Losartan TAB* 25 MG PO SCH (21:00)
--- NOTE | 2018-10-15 22:24 | DS ---
CC: Dr. Humberto Rosario, Psychiatry* DISCHARGE SUMMARY: DATE OF ADMISSION: 10/14/18 DATE OF DISCHARGE: 10/15/18 PRIMARY CARE PHYSICIAN: Dr. Alvino Vera. PRIMARY DIAGNOSES: 1. Medication intentional overdose. 2. Suicidal ideation. 3. Alcohol use disorder. SECONDARY DIAGNOSES: 1. Coronary artery disease. 2. Hypertension. 3. Gastroesophageal reflux disease. 4. Chronic obstructive pulmonary disease. 5. Degenerative joint disease. 6. Obesity complicated by obstructive sleep apnea, on CPAP. 7. Restless legs syndrome. CONSULTS: Dr. Humberto Rosario of Psychiatry. DISCHARGE MEDICATIONS: 1. Metoprolol succinate 100 mg at bedtime. 2. Spironolactone 25 mg daily. 3. Irbesartan 300 mg at bedtime. 4. Aspirin 81 mg daily. 5. Atorvastatin 40 mg daily. 6. Escitalopram 10 mg daily. 7. Pantoprazole 40 mg daily. 8. Ranitidine 150 mg twice a day as needed for reflux. 9. Albuterol 1 puff twice a day as needed for shortness of breath. 10. Ropinirole 8 mg at bedtime. HISTORY OF PRESENT ILLNESS: Mr. Diaz is a 53-year-old obese man with a history of COPD; degenerative joint disease, complicated by chronic pain; MICHELLE, on CPAP; restless legs syndrome ; GERD; hypertension, who is presenting to the hospital after an overdose of approximately 30 tablets of trazodone and 45 tablets of 0.5 mg of Xanax. The patient states that he had been camping last weekend at a local park with a large group of friends and was feeling excluded and ostracized. He had been drinking all day up to 10 beers and additionally several shots of various type of liquor. He impulsively got into his car and drove home intoxicated and then intentionally overdosed on trazodone. Afterwards, he was lying in bed but was not able to fall asleep, so then he took half his bottle of Xanax as well. The patient then blacked out and the next thing he remembers the following morning was being waken up by one of his stepchildren who assisted him to get out of bed. The patient reports being depressed with several neurovegetative symptoms recently including difficulty sleeping, poor energy, poor concentration, and recent suicidal ideation. He was supposed to have an intake at the [facility] in [place], [place], a month ago; however, this was canceled because the patient's was in a colonoscopy that went over time. Further stressors in the patient life include chronic back pain requiring multiple surgeries with pending cervical surgery in December at [facility] in [place]. HOSPITAL COURSE: In the emergency room, Poison Control was contacted and the patient was recommended to have EKG and be monitored until his symptoms improve specifically including respiratory status monitoring. The patient's QTc was normal and by morning after admission, the patient denied all symptoms except mild persistent weakness that had been improved since day prior. The patient admitted that his Lexapro had recently been decreased which may have been contributing to recurrence of multiple depressive symptoms. The patient was initially monitored on one-to-one and had Social Work consultation. He was then evaluated by psychiatry service and noted to be in fair spirits and conversing with his . After evaluation of the patient and discussion with family, it was deemed that the patient's recent intentional overdose was likely impulsive behavior due to being intoxicated in the setting of worsening depressive symptoms and poor self-esteem. Psychiatry cleared the patient for discharge thinking he did not represent an imminent risk to himself. Discharged contingent on the patient being able to receive outpatient care by the end of the week. This was not possible with the [facility]. However, he was able to get a [facility] appointment for this week thanks to social work team. The patient and his expressed understanding of this plan and were aware of the followup appointment. The patient was maintained on telemetry throughout admission and had no events. A repeat EKG on day of admission was with normal QTc and had no other significant abnormalities. PERTINENT STUDIES AND LABS: CBC, BMP, LFTs, and UA were unremarkable. U-tox positive for benzodiazepines and cannabinoids with negative serum alcohol level. Salicylates and acetaminophen level is negative. TSH low at 0.33 with low range of normal 0.34. Brain CT with no acute intracranial abnormality. DISCHARGE PLAN: The patient is to follow up closely with his outpatient providers at the [facility], but he will also be evaluated by [facility] within 3 days of discharge. He should have repeat TSH, as his TSH was mildly suppressed in the inpatient setting. He was extensively educated on importance of abstaining from alcohol. His home medications are to be continued as above with the following notable changes: 1. The patient was reinitiated on escitalopram 10 mg daily by our psychiatry services. 2. The patient is to avoid use of trazodone and controlled substances such as alprazolam in the future. The patient and his were educated on return precautions which include but are not limited to lethargy, decreased breathing, palpitations, or chest pain. He is to eat healthy diet, low on processed foods, and resume activity as tolerated. DISPOSITION: To home. CONDITION: Improved. TIME SPENT: Approximately 60 minutes was spent on discharge of this patient, more than half of which was spent on care and coordination at bedside for interview and exam. [id number]/[facility] #: [id number] AWA
== END 2018-10-15 18:35 | disposition home or self-care (01) | DRG 812 ==
LOC: ED 17:55 → MEDTELE 21:02
PROVIDERS: ADMIT Student in an Organized Health Care Education/Training Program; ATTEND Internal Medicine
DX: T42.4X2A Poisoning by benzodiazepines, intentional self-harm, initial encounter (principal); R45.851 Suicidal ideations; F32.1 Major depressive disorder, single episode, moderate; M54.9 Dorsalgia, unspecified; I25.10 Atherosclerotic heart disease of native coronary artery without angina pectoris; I10 Essential (primary) hypertension; K21.9 Gastro-esophageal reflux disease without esophagitis; J44.9 Chronic obstructive pulmonary disease, unspecified; M19.90 Unspecified osteoarthritis, unspecified site; E66.9 Obesity, unspecified; G47.33 Obstructive sleep apnea (adult) (pediatric); G25.81 Restless legs syndrome; F12.90 Cannabis use, unspecified, uncomplicated; Z72.89 Other problems related to lifestyle; Z99.89 Dependence on other enabling machines and devices; Z68.33 Body mass index [BMI] 33.0-33.9, adult; Y92.009 Unspecified place in unspecified non-institutional (private) residence as the place of occurrence of the external cause; Z79.82 Long term (current) use of aspirin; Z79.51 Long term (current) use of inhaled steroids; Z79.899 Other long term (current) drug therapy; Z87.891 Personal history of nicotine dependence
CPT/HCPCS: 36415; 70450; 80053; 80307; 80320; 80329; 81003; 84443; 85025; 90715; 93005; 94660; 99284; A9270-GY; G0480; J1650